=== PATIENT | female | born 1965 | race Caucasian/White ===

== ENCOUNTER 2017-05-21 15:59 | Emergency (ER) | payer MEDICARE ==
[2017-05-21] MEDS ORDERED: SODIUM CHLORIDE 0.9% 1,000 ML IV ONE ×2 (16:16)
[2017-05-21] MEDS ORDERED: ONDANSETRON 4 MG/2 ML VIAL IVP STA (16:32)
[2017-05-21] MEDS ORDERED: HYDROmorphone 1 MG/ML SYRINGE IVP STA (16:32)
--- NOTE | 2017-05-21 16:39 | ED Physician Documentation ---
PD HPI ABD PAIN - Stated complaint Stated Complaint: VOMITING - Chief complaint Chief Complaint: Abd Pain - History obtained from History obtained from: Patient, Family - History of Present Illness Timing - onset: How many days ago (3) Timing - duration: Days (3) Timing - details: Gradual onset Pain level max: 8 Pain level now: 6 Quality: Aching, Pain Location: All over / everywhere Radiation: Other (non-radiating) Improved by: Laying still Worsened by: Eating, Moving, Palpation Associated symptoms: Fever (103), Vomiting. No: Hematemesis, Diarrhea, Constipation, Melena, Hematochezia, Dysuria, Hematuria Similar symptoms before: Has not had sx before Recently seen: Not recently seen Review of Systems Ten Systems: 10 systems reviewed and negative Constitutional: reports: Fever Ears: denies: Ear pain Nose: denies: Rhinorrhea / runny nose, Congestion Throat: denies: Sore throat Cardiac: denies: Chest pain / pressure Respiratory: denies: Cough : denies: Dysuria Skin: denies: Rash Musculoskeletal: denies: Neck pain, Back pain Neurologic: denies: Headache PD PAST MEDICAL HISTORY - Past Medical History Past Medical History: Yes Musculoskeletal: Chronic back pain - Past Surgical History Past Surgical History: Yes Other past surgical history: back surgery - Present Medications Home Medications: Ambulatory Orders Medication Instructions Recorded Confirmed Alprazolam [Alprazolam Xr] 1 mg PO DAILY PM 05/21/17 05/21/17 Ondansetron Odt [Zofran] 4 mg TL Q6H PRN #10 tablet 05/21/17 Promethazine [Phenergan] 25 mg PO Q6H PRN #10 tab 05/21/17 oxyCODONE [Roxicodone] 30 mg PO 05/21/17 - Allergies Allergies/Adverse Reactions: Allergies Allergy/AdvReac Type Severity Reaction Status Date / Time No Known Drug Allergies Allergy Verified 05/21/17 16:06 - Family History Family history: reports: Non contributory PD ED PE NORMAL - Vitals Vital signs reviewed: Yes - General General: Alert and oriented X 3, No acute distress, Well developed/nourished - HEENT HEENT: PERRL, Moist mucous membranes - Neck Neck: Supple, no meningeal sign - Cardiac Cardiac: RRR, Strong equal pulses - Respiratory Respiratory: No respiratory distress, Clear bilaterally - Abdomen Abdomen: Soft, Other (TTP RLQ at McBurneys point. Neg rovsing. +obturator and psoas. no rebound) - Back Back: No CVA TTP - Derm Derm: Warm and dry - Neuro Neuro: Alert and oriented X 3 - Psych Psych: Normal mood, Normal affect Results - Vitals Vitals: Vital Signs - 24 hr 05/21/17 05/21/17 05/21/17 16:02 17:46 19:25 Temperature 37.2 C 36.9 C Heart Rate 57 L 77 58 L Respiratory 14 18 16 Rate Blood Pressure 124/73 120/59 L 128/60 O2 Saturation 94 93 98 Oxygen O2 Source Room air - Labs Labs: Laboratory Tests 05/21/17 05/21/17 05/21/17 16:39 16:39 17:57 WBC 11.0 H RBC 5.29 Hgb 16.8 H Hct 50.9 H MCV 96.2 MCH 31.8 H MCHC 33.0 RDW 13.6 Plt Count 270 MPV 8.6 Neut # 8.8 H Lymph # 1.4 L Jones # 0.8 Eos # 0.0 Baso # 0.0 Absolute Nucleated RBC 0.00 Nucleated RBC % 0.0 Sodium 139 Potassium 3.6 Chloride 96 L Carbon Dioxide 27 Anion Gap 16.0 H BUN 20 Creatinine 0.7 Estimated GFR (MDRD) 88 L Glucose 116 H Calcium 10.0 Total Bilirubin 0.8 AST 17 ALT 23 Alkaline Phosphatase 72 Total Protein 8.6 H Albumin 4.0 Globulin 4.6 H Albumin/Globulin Ratio 0.9 L Lipase 21 L Urine Color YELLOW Urine Clarity HAZY Urine pH 6.0 Ur Specific [place] 1.025 Urine Protein >=300 H Urine Glucose (UA) NEGATIVE Urine Ketones 40 H Urine Occult Blood LARGE H Urine Nitrite NEGATIVE Urine Bilirubin NEGATIVE Urine Urobilinogen 0.2 (NORMAL) Ur Leukocyte Esterase NEGATIVE Urine RBC 6-10 H Urine WBC 0-3 Ur Squamous Epith Cells MANY Squamous H Urine Bacteria Moderate H Ur Microscopic Review INDICATED Urine Culture Comments NOT INDICATED - Rads (name of study) CT abd/pelvis Radiology: Prelim report reviewed, EMP read contemporaneously, See rad report ( Normal appendix. Old mild wedging thoracolumbar junction. No radiographic explanation for this lady's presenting symptoms.) PD MEDICAL DECISION MAKING - ED course Complexity details: reviewed results, re-evaluated patient, considered differential, d/w patient ED course: Patient is a 51-year-old female presents to the emergency department with abdominal pain, nausea, vomiting and reported fevers at home. She was given IV fluids, Zofran, Phenergan. Vomiting resolved. Tolerating p.o. without difficulty. Dilaudid controlled her pain well. Has oxycodone at home. CT scan reveals no acute abnormalities. Abdomen is soft, nondistended tender nondistended on serial exam. We will continue supportive care and follow-up with her doctor. Patient counseled regarding signs and symptoms for which I believe and urgent re-evaluation would be necessary. Patient with good understanding of and agreement to plan and is comfortable going home at this time This document was made in part using voice recognition software. While efforts are made to proofread this document, sound alike and grammatical errors may occur. Departure - Departure Disposition: 01 Home, Self Care Clinical Impression: Vomiting Qualifiers: Vomiting type: unspecified Vomiting Intractability: non-intractable Nausea presence: with nausea Qualified Code(s): R11.2 - Nausea with vomiting, unspecified Abdominal pain Qualifiers: Abdominal location: generalized Qualified Code(s): R10.84 - Generalized abdominal pain Condition: Good Instructions: ED Nausea Vomiting Follow-Up: EMILIA RENAE [Primary Care Provider] - Within 3 Days Prescriptions: Ondansetron Odt [Zofran] 4 mg TL Q6H PRN #10 tablet PRN Reason: Nausea / Vomiting Promethazine [Phenergan] 25 mg PO Q6H PRN #10 tab PRN Reason: Nausea / Vomiting Comments: Drink plenty of fluids and rest. Return if you worsen. Do not drive or operate heavy machinery while taking the phenergan. Discharge Date/Time: 05/21/17 19:25
[2017-05-21 16:48] LABS: BASOPHILS % (AUTO) 0.4 %; HCT - HEMATOCRIT 50.9 % (37.0-47.0); HGB - HEMOGLOBIN 16.8 g/dL (12.0-16.0); LYMPHOCYTES # (AUTO) 1.4 10^3/uL (1.5-3.5); LYMPHOCYTES % (AUTO) 12.4 %; MEAN CORPUSCULAR HEMOGLOBIN 31.8 pg (27.0-31.0); MEAN CORPUSCULAR VOLUME 96.2 fL (81.0-99.0); MEAN PLATELET VOLUME 8.6 fL (7.9-10.8); MONOCYTES # (AUTO) 0.8 10^3/uL (0.0-1.0); MONOCYTES % (AUTO) 7.3 %; NEUTROPHILS # (AUTO) 8.8 10^3/uL (1.5-6.6); NEUTROPHILS % (AUTO) 79.9 %; RED BLOOD COUNT 5.29 10^6/uL (4.20-5.40); RED CELL DISTRIBUTION WIDTH 13.6 % (12.0-15.0)
[2017-05-21] MEDS ORDERED: IOPAMIDOL-300 100 ML VIAL ONE (16:55)
[2017-05-21 17:04] LABS: ALBUMIN/GLOBULIN RATIO 0.9 (1.0-2.2); BILIRUBIN,TOTAL 0.8 mg/dL (0.2-1.0); CREATININE 0.7 mg/dL (0.4-1.0); POTASSIUM 3.6 mmol/L (3.5-5.0); TOTAL PROTEIN 8.6 g/dL (6.7-8.2)
[2017-05-21] MEDS ORDERED: IOPAMIDOL-300 100 ML VIAL IVP ONE (17:30)
--- NOTE | 2017-05-21 17:50 | CT Preliminary Report ---
Exam: CT ABDOMEN/PELVIS W/ IMPRESSION: 1. Normal appendix. 2. Old mild wedging thoracolumbar junction. 3. No radiographic explanation for this lady's presenting symptoms. [facility] SITE ID: [id number]
--- NOTE | 2017-05-21 17:58 | CT Report ---
EXAM: CT ABDOMEN AND PELVIS WITH CONTRAST EXAM DATE: 05/21/2017 05:29 PM. CLINICAL HISTORY: Right lower quadrant abdominal pain, fever, vomiting. COMPARISONS: None. TECHNIQUE: Routine helical CT imaging was performed through the abdomen and pelvis. IV contrast: 100 mL of Isovue 300. Enteric contrast: No. Reconstructions: Coronal and sagittal. In accordance with CT protocol optimization, one or more of the following dose reduction techniques w ere utilized for this exam: automated exposure control, adjustment of mA and/or KV based on patient s ize, or use of iterative reconstructive technique. FINDINGS: Lung Bases: Faint airspace infiltrate medial segment right middle lobe. Slight anterior bibasilar irish telike atelectasis. Liver: Normal. No masses. Gallbladder/Bile Ducts: Unremarkable. Spleen: Normal. Pancreas: Normal. Adrenal Glands: Normal. 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 Normal left kidney. Peritoneal Cavity/Bowel: Normal. No free fluid, free air or adenopathy. No masses or acute inflammato ry process. The appendix is well visualized and normal. Pelvic Organs: Normal. The bladder and visualized pelvic organs are within normal limits. Vasculature: No aneurysms or other significant abnormality. Bones: Old mild wedging T12, L1 and L2. Marked degenerative disk disease L5-S1. Other: None. IMPRESSION: 1. Normal appendix. 2. Old mild wedging thoracolumbar junction. 3. No radiographic explanation for this lady's presenting symptoms. [facility] Referring Provider Line: [phone] SITE ID: [id number]
[2017-05-21] MEDS ORDERED: PROMETHAZINE INJ 25 MG in SODIUM CHLORIDE 0.9% 50 ML IV STA (18:12)
[2017-05-21 18:16] LABS: BILIRUBIN,URINE NEGATIVE (NEGATIVE); UA w/ MICROSCOPIC CHARGE YES
[2017-05-21 18:25] LABS: UR CULTURE IF IND NOT INDICATED; WBC,URINE 0-3 /HPF (0-5)
[2017-05-21] MEDS ORDERED: PROMETHAZINE 25 MG/1 ML VIAL ONE (18:26)
[2017-05-21 19:27] VITALS: BP 128/60
== END 2017-05-21 19:25 | disposition home or self-care (01) ==
LOC: ED 15:59
DX: R50.9 Fever, unspecified (principal); R11.2 Nausea with vomiting, unspecified; R10.84 Generalized abdominal pain
CPT/HCPCS: 36415; 74177; 80053; 81001; 83690; 85025; 96361; 96365; 96375; 99283; 99285; J1170; J7040; Q9967; 81003; 87086

== ENCOUNTER 2019-12-06 11:16 | Emergency (ER) | payer MEDICARE ==
[2019-12-06] MEDS ORDERED: DEXAMETHASONE 10 MG/ML VIAL PO STA (14:27)
[2019-12-06] MEDS ORDERED: CHERRY SYRUP 10 ML UDC PO ONE (14:27)
--- NOTE | 2019-12-06 14:31 | ED Physician Documentation ---
PD HPI HEENT - Stated complaint Stated Complaint: L SIDE FACE PX/SWELLING - Chief complaint Chief Complaint: General - History obtained from History obtained from: Patient - History of Present Illness Timing - onset: How many days ago (4) Timing - duration: Days (4) Timing - details: Gradual onset, Still present Location: Sinuses Improves: Medication Associated symptoms: Congestion, Rhinorrhea, Facial swelling, Headache, Cough Similar symptoms before: Diagnosis (sinusitis) Recently seen: Not recently seen - Additional information Additional information: 53-year-old female complains of a four-day history of swelling to the left side of her face increased drainage down the back of her throat a cough sore throat. She has had sinus infection previously feels similar. She brings in the bottle of the antibiotic she takes previously that helped tremendously and she brings in a bottle of Augmentin 875. Review of Systems Constitutional: denies: Fever Eyes: denies: Decreased vision Ears: denies: Ear pain Nose: reports: Rhinorrhea / runny nose, Congestion, Sinus pressure / pain Throat: reports: Sore throat Cardiac: denies: Chest pain / pressure, Palpitations Respiratory: reports: Cough. denies: Dyspnea GI: reports: Vomiting (with coughing). denies: Abdominal Pain, Nausea PD PAST MEDICAL HISTORY - Past Medical History Past Medical History: Yes Musculoskeletal: Chronic back pain - Past Surgical History Past Surgical History: Yes Ortho: Knee replacement, Carpal Tunnel surgery, Spine surgery, Other - Present Medications Home Medications: Ambulatory Orders Medication Instructions Recorded Confirmed Alprazolam [Alprazolam Xr] 1 mg PO DAILY PM 05/21/17 05/21/17 Ondansetron Odt [Zofran] 4 mg TL Q6H PRN #10 tablet 05/21/17 Promethazine [Phenergan] 25 mg PO Q6H PRN #10 tab 05/21/17 oxyCODONE [Roxicodone] 30 mg PO 05/21/17 Amox/Clav 875/125 [Augmentin] 1 each PO Q12H #20 tablet 12/06/19 - Allergies Allergies/Adverse Reactions: Allergies Allergy/AdvReac Type Severity Reaction Status Date / Time No Known Drug Allergies Allergy Verified 12/06/19 11:25 - Social History Does the pt smoke?: Yes Smoking Status: Current every day smoker Does the pt drink ETOH?: No Does the pt have substance abuse?: No - Immunizations Immunizations are current?: Yes - POLST Patient has POLST: No PD ED PE NORMAL - Vitals Vital signs reviewed: Yes (hypertension ) - General General: Alert and oriented X 3, No acute distress, Well developed/nourished - HEENT HEENT: PERRL, EOMI, Other (minimal inflamation to the left TM and more to the right TM. both with preserved landmarks. There is point tenderness to both maxillary sinuses R>L) - Neck Neck: Supple, no meningeal sign, No bony TTP - Cardiac Cardiac: RRR, No murmur - Respiratory Respiratory: No respiratory distress, Clear bilaterally - Abdomen Abdomen: Soft, Non tender - Back Back: No CVA TTP, No spinal TTP - Derm Derm: Normal color, Warm and dry, No rash - Extremities Extremities: No deformity, No edema - Neuro Neuro: Alert and oriented X 3, senior merchandiser 2-12 intact, No motor deficit, No sensory deficit, Normal speech Eye Opening: Spontaneous Motor: Obeys Commands Verbal: Oriented GCS Score: 15 - Psych Psych: Normal mood, Normal affect Results - Vitals Vitals: Vital Signs - 24 hr 12/06/19 11:18 Temperature 36.3 C L Heart Rate 87 Respiratory 16 Rate Blood Pressure 133/74 H O2 Saturation 98 Oxygen O2 Source Room air PD MEDICAL DECISION MAKING - ED course Complexity details: considered differential, d/w patient ED course: 53-year-old female with signs and symptoms of sinusitis does report an injury to her face on the left side and more swelling on the left side than the right she has tenderness to both maxillary sinuses she has a cough she has otitis on exam I suspect she does have infection and the injury is secondary.She is administered dexamethasone 10 mg orally and we will place her back onto her Augmentin. Departure - Departure Disposition: 01 Home, Self Care Clinical Impression: Sinusitis Qualifiers: Sinusitis location: maxillary Chronicity: acute Recurrence: recurrent Qualified Code(s): J01.01 - Acute recurrent maxillary sinusitis Condition: Stable Instructions: ED Sinusitis Abx Tx Follow-Up: Catrachito Miranda DO [Primary Care Provider] - Prescriptions: Amox/Clav 875/125 [Augmentin] 1 each PO Q12H #20 tablet
[2019-12-06 14:38] VITALS: BP 138/76
== END 2019-12-06 14:41 | disposition home or self-care (01) ==
LOC: ED 11:16
DX: J01.01 Acute recurrent maxillary sinusitis (principal); H66.90 Otitis media, unspecified, unspecified ear; S09.93XA Unspecified injury of face, initial encounter; X58.XXXA Exposure to other specified factors, initial encounter; F17.200 Nicotine dependence, unspecified, uncomplicated
CPT/HCPCS: 99282; 99284; A9270

== ENCOUNTER 2020-05-14 07:00 | Outpatient (CLI) | payer MEDICARE | END 2020-05-14 23:59 | disposition home or self-care (01) | LOC: COV 07:00 | PROVIDERS: ATTEND Family Medicine | DX: R05 Cough (principal); R53.83 Other fatigue; R43.8 Other disturbances of smell and taste; R09.81 Nasal congestion; J34.89 Other specified disorders of nose and nasal sinuses; R11.2 Nausea with vomiting, unspecified; Z20.828 Contact with and (suspected) exposure to other viral communicable diseases ==